=== PATIENT | male | born 1985 | race Caucasian/White ===

== ENCOUNTER 2017-09-17 03:07 | Emergency (ER) | payer OTHER ==
[2017-09-17 03:11] VITALS: BP 150/72; PULSE 118; RESP 15; TEMP 98.4; O2SAT 99
[2017-09-17] MEDS ORDERED: ACETAMINOPHEN 500 MG CPLT PO ONE (03:30)
[2017-09-17] MEDS ORDERED: TETANUS/DIPHTHERIA TOXOID ADULT 0.5 ML VIAL IM ONE (03:30)
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
[2017-09-17 05:15] VITALS: RESP 20
[2017-09-17] MEDS ORDERED: CYCL10TA PO (06:01)
[2017-09-17] MEDS ORDERED: DICL75TA PO (06:01)
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
== END 2017-09-17 06:14 | disposition home or self-care (01) ==
LOC: NEPD 03:07
DX: S16.1XXA Strain of muscle, fascia and tendon at neck level, initial encounter (principal); S00.01XA Abrasion of scalp, initial encounter; V89.2XXA Person injured in unspecified motor-vehicle accident, traffic, initial encounter; Z23 Encounter for immunization
CPT/HCPCS: 72040; 90471; 90714

== ENCOUNTER 2017-09-27 14:42 | Emergency (ER) | payer OTHER ==
[~2017-09-27] VITALS: Ht 195.6 cm; Wt 118.0 kg
[~2017-09-27 14:42] MED LIST: CYCL10TA PO; DICL75TA PO
[2017-09-27 14:52] VITALS: BP 178/74; PULSE 89; RESP 16; TEMP 98.3; O2SAT 97
[2017-09-27] MEDS ORDERED: LIDOCAINE 1%/EPINEPHrine 1:100,000 SOLN 20 ML VIAL INFIL ONE (16:00)
[2017-09-27] MEDS ORDERED: BACT800T5 PO (16:07)
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
[2017-09-27 16:49] VITALS: BP 160/76
== END 2017-09-27 16:49 | disposition home or self-care (01) ==
LOC: PHEFT 14:42
DX: Z04.1 Encounter for examination and observation following transport accident (principal); L02.415 Cutaneous abscess of right lower limb; F17.210 Nicotine dependence, cigarettes, uncomplicated
CPT/HCPCS: 99283